=== PATIENT | female | born 1950 | race Caucasian/White ===

== ENCOUNTER → 2021-11-20 | Outpatient (CLI) | payer MEDICARE ==
--- NOTE | 2021-12-08 21:31 | MM ---
Reason for Exam: Screening (asymptomatic). Last mammogram was performed 4 year(s) and 11 month(s) ago. Patient History: Menarche at age 12. First Full-Term at age 16. Postmenopausal. Risk Values: Jennifer 5 year model risk: 1.2%. NCI Lifetime model risk: 2.9%. Prior Study Comparison: 09/22/2014 Bilateral MG screening mammo w [address] 12/25/2016 Bilateral MG screening mammo w [address] Tissue Density: There are scattered fibroglandular densities. Findings: Analyzed By CAD. There is no suspicious group of microcalcifications or new suspicious mass in either breast. Overall Assessment: Negative, BI-RAD 1 Management: Screening Mammogram of both breasts in 1 year. 1. The patient to continue monthly breast exams. 2. A clinical breast exam by your physician is recommended on an annual basis. 3. This exam should not preclude additional follow-up of suspicious palpable abnormalities. Electronically signed and approved by: Luis Fernando Mccollum M.D. Radiologist
== END | disposition home or self-care (01) ==
LOC: RADMAMWWP 13:31
PROVIDERS: ATTEND Family Medicine
DX: Z12.31 Encounter for screening mammogram for malignant neoplasm of breast (principal); Z78.0 Asymptomatic menopausal state
CPT/HCPCS: 77063; 77067

== ENCOUNTER → 2024-02-12 | Outpatient (CLI) | payer MEDICARE ==
[2024-02-12 16:42] LABS: Basophils # (A) 0.05 X 10*3/uL (0.00-0.10); Basophils % (A) 0.9 %; Eosinophils # (A) 0.19 X 10*3/uL (0.04-0.35); Eosinophils % (A) 3.3 %; HCT 41.7 % (37.2-46.3); HGB 13.6 g/dL (12.0-15.0); Lymphocytes # (A) 1.73 X 10*3/uL (0.90-5.00); Lymphocytes % (A) 29.7 %; MCH 30.8 pg (27.0-32.0); MCHC 32.6 g/dL (32.0-37.0); MCV 94.3 FL (80.0-97.0); Mean Platelet Volume 9.6 FL (9.5-12.2); Monocytes # (A) 0.39 X 10*3/uL (0.20-1.00); Monocytes % (A) 6.7 %; NRBC Per 100 WBC 0 X 10*3/uL (0.00-0.01); Neutrophils # (A) 3.44 X 10*3/uL (1.80-7.70); Neutrophils % (A) 58.9 %; Platelet Count 329 X 10*3/uL (140-440); RBC 4.42 X 10*6/uL (4.10-5.20); RDW 13.1 % (11.5-14.5); WBC 5.83 X 10*3/uL (4.50-10.00)
[2024-02-12 17:32] LABS: ALT 19 U/L (8-44); AST 19 U/L (13-35); Albumin 4.6 g/dL (3.8-4.9); Albumin/Globulin Ratio 1.84 Ratio (1.60-3.17); Alkaline Phosphatase 65 U/L (41-126); BUN/Creat Ratio 16.38 Ratio (12.00-20.00); Blood Urea Nitrogen 13.1 mg/dL (9.0-27.0); Calcium 9.7 mg/dL (8.7-10.3); Carbon Dioxide 25.5 mmol/L (21.6-31.8); Chloride 106 mmol/L (96-109); Chol/HDL Ratio 4.09 Ratio; Globulin 2.5 g/dL (1.6-3.3); Glucose 99 mg/dL (70-110); LDL Cholesterol,Calculated 166.7 mg/dL (0.0-131.0); Magnesium 2.2 mg/dL (1.5-2.4); Potassium 4.9 mmol/L (3.5-5.5); Sodium 142 mmol/L (135-145); Total Bilirubin 0.4 mg/dL (0.3-1.2); Total Protein 7.1 g/dL (6.2-8.2)
[2024-02-12 17:33] LABS: T4, Free (Free Thyroxine) 1.29 ng/dL (0.80-1.80)
== END | disposition home or self-care (01) ==
LOC: LABWHC1 09:47
PROVIDERS: ATTEND Internal Medicine
DX: Z00.00 Encounter for general adult medical examination without abnormal findings (principal); Z11.59 Encounter for screening for other viral diseases; E03.9 Hypothyroidism, unspecified
CPT/HCPCS: 36415; 80053; 80061; 82306; 83735; 84439; 84443; 85025; 86803

== ENCOUNTER → 2024-03-18 | Outpatient (CLI) | payer MEDICARE ==
--- NOTE | 2024-03-21 09:02 | MM ---
Reason for Exam: Screening (asymptomatic). Last mammogram was performed 2 year(s) and 4 month(s) ago. Patient History: Menarche at age 12. First Full-Term at age 16. Postmenopausal. Risk Values: Jennifer 5 year model risk: 1.2%. NCI Lifetime model risk: 2.5%. Prior Study Comparison: 09/22/2014 Bilateral MG screening mammo w CAD - 2, [place]. 12/25/2016 Bilateral MG screening mammo w CAD - 2, [place]. 11/20/2021 Bilateral MG 3D screening mammo w/cad, [facility]. Tissue Density: The breasts are heterogeneously dense, which may obscure small masses. Findings: Analyzed By CAD. There is no suspicious group of microcalcifications or new suspicious mass in either breast. Stable benign calcifications and chronic lymph nodes Overall Assessment: Benign, BI-RAD 2 Management: Screening Mammogram of both breasts in 1 year. . Patient should continue monthly self-breast exams. A clinical breast exam by your physician is recommended on an annual basis. This exam should not preclude additional follow-up of suspicious palpable abnormalities. Note on Jennifer scores and lifetime risk: 1. A Jennifer score greater than 3% is considered moderate risk. If this is the case, consider specialist referral to assess eligibility for a risk reducing agent. 2. If overall lifetime risk for the development of breast cancer is 20% or higher, the patient may qualify for future screening with alternating mammogram and breast MRI. [facility], , 03/21/2024 9:00 AM. Electronically signed and approved by: Sathya Lambert M.D. Radiologis
--- NOTE | 2024-03-25 10:09 | US ---
EXAMINATION TYPE: US thyroid st tissue head/neck DATE OF EXAM: 03/18/2024 COMPARISON: NONE CLINICAL INDICATION: Female, 73 years old with history of HYPOTHYROID E039; Hypothyroid. TECHNIQUE: Grayscale and color Doppler imaging of the thyroid gland. FINDINGS: GLAND SIZE: Right Lobe: 5.4 x 1.7 x 2.2 cm Overall Parenchyma: heterogeneous Left Lobe: 5.0 x 1.3 x 1.5 cm Overall Parenchyma: heterogeneous Isthmus Thickness: 0.39 cm NODULES RIGHT: # of nodules measured on right: 0 LEFT: # of nodules measured on left: 2 1. 0.8 X 0.7 x 0.6 cm, upper mid, solid or almost completely solid, hyperechoic/calcified nodule, w hich is wider than tall, with smooth margins, with echogenic foci. Prior size: No prior 2. 1.2 X 1.0 x 0.9 cm, upper lateral, solid or almost completely solid, hypoechoic nodule, which i s wider than tall, with ill-defined margins, without echogenic foci. Prior size: No prior ISTHMUS: # of nodules measured in the isthmus: 0 Bilateral neck scanned, no evidence of lymphadenopathy. IMPRESSION: Moderately Suspicious: FNA if ? 1.5 cm; Follow if ? 1 cm at 1, 2, 3, and 5 y 2017 ACR TI-RADS LEVEL: TR4 *Highest TI-RADS level nodule reported [email or web address] [facility], , 03/25/2024 10:07 AM
== END | disposition home or self-care (01) ==
LOC: RADMAMWWP 13:10
PROVIDERS: ATTEND Internal Medicine
CPT/HCPCS: 76536; 77063; 77067; 77080

== ENCOUNTER → 2024-10-25 | Outpatient (CLI) | payer MEDICARE ==
--- NOTE | 2024-10-25 13:12 | US ---
EXAMINATION TYPE: US thyroid st tissue head/neck DATE OF EXAM: 10/25/2024 COMPARISON: 03/18/24 CLINICAL INDICATION: Female, 74 years old with history of E04.1 thyroid nodule; follow up TECHNIQUE: Grayscale and color Doppler imaging of the thyroid gland. FINDINGS: GLAND SIZE: Right Lobe: 4.7 x 1.5 x 2.0 cm Overall Parenchyma: heterogeneous Left Lobe: 4.7 x 1.4 x 1.5 cm Overall Parenchyma: heterogeneous Isthmus Thickness: 0.33 cm NODULES RIGHT: # of nodules measured on right: 0 LEFT: # of nodules measured on left: 2 1. 0.7 X 0.5 x 0.5 cm, mid mid, solid or almost completely solid, hyperechoic nodule, which is wide r than tall, with smooth margins, peripherally calcified TR4 nodule Prior size: 0.8 x 0.7 x 0.6 cm 2. 1.0 X 0.8 x 0.9 cm, upper lateral, solid or almost completely solid, isoechoic TR 3 nodule, whi ch is wider than tall, with ill-defined margins, without echogenic foci. Prior size: 1.2 x 1.0 x 0.9 cm ISTHMUS: # of nodules measured in the isthmus: 0 Scheduling Administrator notes: Bilateral neck scanned, no evidence of lymphadenopathy. Normal appearing lymph nodes on right side of neck lateral to thyroid. IMPRESSION: A 7 mm TR4 nodule on the left and a 1.0 cm TR3 nodule on the left. These are stable or slightly small er. TR3: If nodule size is ? 2.5 cm, FNA is recommended. If nodule size is ? 1.5 cm, follow-up imaging at 1, 3, and 5 years is recommended. TR4: If nodule size is ? 1.5 cm, FNA is recommended. If nodule size is ? 1.0 cm, follow-up imaging at 1, 2, 3, and 5 years is recommended. [facility], , 10/25/2024 1:09 PM
== END | disposition home or self-care (01) ==
LOC: RADUSWWP 11:47
PROVIDERS: ATTEND Internal Medicine
DX: E04.1 Nontoxic single thyroid nodule (principal)
CPT/HCPCS: 76536